=== PATIENT | female | born 1945 | race Caucasian/White ===

== ENCOUNTER 2023-08-22 14:43 | Emergency (ER) | payer MEDICARE, SELFPAY ==
[2023-08-22 15:09] VITALS: BP 163/70; PULSE 69; RESP 18; TEMP 35.8; O2SAT 100
--- NOTE | 2023-08-22 15:21 | ED.URI ---
HPI - URI/Sore Throat General Chief Complaint: Upper Respiratory Infection Stated Complaint: congestion,cough Time Seen by Provider: 08/22/23 15:10 Source: patient Mode of arrival: ambulatory Limitations: no limitations History of Present Illness HPI Narrative: Ritika is a 78-year-old female patient presenting to the clinic today with complaints of cough, nasal congestion, and sinus pain. She reports her symptoms have been ongoing since July 21. States that she got a Z-Juice at that time and that did not really help her symptoms. States she is having a lot of sinus pressure with yellow nasal drainage. Denies any fever or chills. MD elicited complaint: cough, rhinorrhea, nasal congestion and sinus pain Related Data Home Medications Medication Instructions Recorded Confirmed alendronate 70 mg tablet mg PO 08/22/23 ergocalciferol (vitamin D2) 1,250 08/22/23 mcg (50,000 unit) capsule escitalopram oxalate 10 mg tablet mg 08/22/23 furosemide 20 mg tablet mg 08/22/23 hydrocodone 5 mg-acetaminophen 325 tablet 08/22/23 mg tablet insulin NPH isoph U-100 human 100 unit subcut 08/22/23 unit/mL (3 mL) subcutaneous pen (Novolin N FlexPen) irbesartan 300 mg tablet mg 08/22/23 metoprolol succinate 50 mg mg PO 08/22/23 tablet,extended release 24 hr pantoprazole 40 mg tablet,delayed mg PO 08/22/23 release pregabalin 50 mg capsule mg 08/22/23 spironolactone 25 mg tablet mg 08/22/23 Allergies Allergy/AdvReac Type Severity Reaction Status Date / Time No Known Allergies Allergy Mild Verified 08/22/23 15:15 Review of Systems Review of Systems: Pertinent positives per HPI. Patient denies any fever, chills, rash, headache, visual changes, dizziness, cough, shortness of breath, chest pain, palpitations, nausea, vomiting, diarrhea, constipation, abdominal pain, or any urinary issues. PMFSH Comments At the time of my signature, I reviewed and agree with the nursing past medical, surgical, social, and family history. There is no relevant family history pertinent to the patient complaint. Exam Narrative: General: Well-developed, well nourished, in no apparent distress Head: Normocephalic, atraumatic Eyes: Pupils equally round and reactive to light bilaterally, EOM intact, sclera and conjunctive clear, no discharge, lids normal Ears: TMs intact and clear, ear canals clear, no drainage, grossly hearing normal. Nose: Nares patent, yellow nasal discharge, moderate inflammation, maxillary sinus tenderness. Mouth: Oral pharynx without lesions or masses, good dentition, MMM. Neck: Supple, trachea midline, no enlargement of anterior or posterior cervical nodes, no thyroid masses or goiter palpable. Cardio: Regular rate and rhythm, s1 and s2 normal, no murmur appreciated. Resp: Faint expiratory wheezing, no rhonchi, rales, wheezing or rubs Course Course Emergency Course: Portions of this record may have been created with voice recognition software. Level of Care: Express Care Visit Vital Signs Vital signs: Vital Signs Temperature 35.8 C L 08/22/23 15:09 Pulse Rate 69 08/22/23 15:09 Respiratory Rate 18 08/22/23 15:09 Blood Pressure 163/70 H 08/22/23 15:09 Pulse Oximetry 100 08/22/23 15:09 Oxygen Delivery Room Air 08/22/23 15:09 Temperature 35.8 C L 08/22/23 15:09 Pulse Rate 69 08/22/23 15:09 Respiratory Rate 18 08/22/23 15:09 Blood Pressure 163/70 H 08/22/23 15:09 Pulse Oximetry 100 08/22/23 15:09 Oxygen Delivery Room Air 08/22/23 15:09 Vital signs reviewed MDM - URI/Sore Throat MDM Narrative Medical decision making narrative: At the time of visit patient is resting comfortably on the exam table. Patient appears to be nontoxic. I suspect patient has sign of bronchitis. Prescription for Augmentin, prednisone, and albuterol inhaler was sent to the pharmacy. Supportive measures were discussed with the patient and they voiced understanding disc
== END 2023-08-22 15:32 | disposition home or self-care (01) ==
PROVIDERS: Emergency Provider Nurse Practitioner Family
DX: J32.9 Chronic sinusitis, unspecified (principal); J40 Bronchitis, not specified as acute or chronic; E78.00 Pure hypercholesterolemia, unspecified; I10 Essential (primary) hypertension; H10.9 Unspecified conjunctivitis
CPT/HCPCS: 99213; G0463

== ENCOUNTER 2023-09-26 13:59 | Emergency (ER) | payer MEDICARE, SELFPAY ==
[2023-09-26 14:08] VITALS: BP 166/54; PULSE 58; RESP 18; TEMP 36.5; O2SAT 96
[2023-09-26 14:10] VITALS: BP 166/54; PULSE 58; RESP 18; TEMP 36.5; O2SAT 96
--- NOTE | 2023-09-26 14:27 | ED.SKABFB ---
HPI - Skin/Abscess/Foreign Bdy General Chief complaint: Skin/Abscess/Foreign Body Stated complaint: Cellulitis Time Seen by Provider: 09/26/23 14:26 Source: patient and RN notes reviewed Mode of arrival: ambulatory Limitations: dementia History of Present Illness HPI narrative: 78-year-old female presents concern for redness with bumps to the right lower leg. She reports she noticed to the symptoms starting 1 week ago. She denies pain. She reports normal swelling in both lower legs. She denies fever, aches, chills, sweats. Denies any open skin. MD complaint: other (Redness) Related Data Home Medications Medication Instructions Recorded Confirmed alendronate 70 mg tablet 70 mg PO DAILY 08/22/23 09/26/23 ergocalciferol (vitamin D2) 1,250 1,250 mcg PO DAILY 08/22/23 09/26/23 mcg (50,000 unit) capsule escitalopram oxalate 10 mg tablet 10 mg PO DAILY 08/22/23 09/26/23 furosemide 20 mg tablet 20 mg PO DAILY 08/22/23 09/26/23 insulin NPH isoph U-100 human 100 100 unit subcut DAILY 08/22/23 09/26/23 unit/mL (3 mL) subcutaneous pen (Novolin N FlexPen) irbesartan 300 mg tablet 300 mg PO DAILY 08/22/23 09/26/23 metoprolol succinate 50 mg 50 mg PO DAILY 08/22/23 09/26/23 tablet,extended release 24 hr pantoprazole 40 mg tablet,delayed 40 mg PO DAILY 08/22/23 09/26/23 release pregabalin 50 mg capsule 50 mg PO DAILY 08/22/23 09/26/23 spironolactone 25 mg tablet 25 mg PO DAILY 08/22/23 09/26/23 blood sugar diagnostic (Accu-Chek 09/26/23 09/26/23 Mary Plus test strips) trazodone 50 mg tablet 50 mg PO HS 09/26/23 09/26/23 Allergies Allergy/AdvReac Type Severity Reaction Status Date / Time No Known Allergies Allergy Mild Verified 09/26/23 14:04 Review of Systems Review of Systems: CONSTITUTIONAL: Denies malaise, chills, sweats, or fever. EYES: Denies redness, or discharge. ENT: Denies rhinorrhea, congestion, swollen lips, swollen tongue CARDIOVASCULAR: Denies chest pain, palpitations, or edema. RESPIRATORY: Denies cough or dyspnea. GASTROINTESTINAL: Denies abdominal pain, nausea, vomiting SKIN: Reports redness with bumps to the right lower leg. Denies purulent drainage, vesicles, bullae, numbness, pain beyond proportion MUSCULOSKELETAL: Denies joint pain or myalgia. NEUROLOGIC: Denies headache. All systems reviewed & are unremarkable except as noted in HPI and below PMFSH Comments At time of signature, agree with nursing past medical, surgical, social and family history. There is no relevant family history pertinent to the presenting complaint Exam Narrative: GENERAL: Well-appearing, well-nourished, and in no acute distress. HEAD: Normocephalic, atraumatic. EYES: PERRLA, conjunctivae clear ENT: Mucous membranes moist. NECK: Supple. No lymphadenopathy CHEST: Clear to auscultation. No respiratory distress. HEART: Regular rate and rhythm. SKIN: Warm, dry. Erythema, induration, warmth with sharp margins noted to the right anterior lower leg. No vesicles, bullae, necrosis, ecchymosis, crepitus noted. No posterior calf tenderness, redness, warmth noted NEURO: Alert and oriented x3. PSYCH: Normal mood and affect Course Course Emergency Course: Patient is aware of diagnosis, understands and agrees to treatment plan. Anticipatory guidance given. Patient agrees to follow-up as directed and is aware of reasons to seek care at the emergency department. Portions of this record may have been created with voice recognition software Level of Care: Express Care Visit Vital Signs Vital signs: Vital Signs Temperature 97.7 F 09/26/23 14:08 Pulse Rate 58 L 09/26/23 14:08 Respiratory Rate 18 09/26/23 14:08 Blood Pressure 166/54 H 09/26/23 14:08 Pulse Oximetry 96 09/26/23 14:08 Oxygen Delivery Room Air 09/26/23 14:08 Temperature 97.7 F 09/26/23 14:10 Pulse Rate 58 L 09/26/23 14:10 Respiratory Rate 18 09/26/23 14:10 Blood Pressure 166/54 H 09/26/23 14:10 Pulse Oximetry
== END 2023-09-26 14:37 | disposition home or self-care (01) ==
PROVIDERS: Emergency Provider Nurse Practitioner
DX: L03.115 Cellulitis of right lower limb (principal); E78.00 Pure hypercholesterolemia, unspecified; I10 Essential (primary) hypertension; K21.9 Gastro-esophageal reflux disease without esophagitis; E11.9 Type 2 diabetes mellitus without complications; F41.9 Anxiety disorder, unspecified; F32.A Depression, unspecified
CPT/HCPCS: 99213; G0463